=== PATIENT | male | born 2000 | race Hispanic/Latino ===

== ENCOUNTER 2023-08-28 19:28 | Emergency (ER) | payer BC ==
[2023-08-28] MEDS ORDERED: Lidocaine 1% PF 5 ML VIAL ONE (20:41)
[2023-08-28] MEDS ORDERED: Boostrix 0.5 ML (Tdap) VIAL (>/=7 yrs of age) ONE (21:05)
[2023-08-28] MEDS ORDERED: Bacitracin 1 PK ONE (21:05)
== END 2023-08-28 21:20 | disposition home or self-care (01) ==
LOC: ERS 19:28
DX: S61.213A Laceration without foreign body of left middle finger without damage to nail, initial encounter (principal); W26.8XXA Contact with other sharp object(s), not elsewhere classified, initial encounter; Z23 Encounter for immunization
CPT/HCPCS: 12001; 90471; 90715

== ENCOUNTER 2023-09-09 18:59 | Emergency (ER) | payer BC | END 2023-09-09 19:15 | disposition home or self-care (01) | LOC: ERS 18:59 | DX: S61.223D Laceration with foreign body of left middle finger without damage to nail, subsequent encounter (principal); W26.9XXD Contact with unspecified sharp object(s), subsequent encounter ==

== ENCOUNTER 2023-12-11 14:23 | Emergency (ER) | payer BC ==
[2023-12-11] MEDS ORDERED: Ibuprofen 200 MG TAB ONE (16:52)
== END 2023-12-11 18:25 | disposition home or self-care (01) ==
LOC: ERS 14:23
DX: S62.301A Unspecified fracture of second metacarpal bone, left hand, initial encounter for closed fracture (principal); Y04.2XXA Assault by strike against or bumped into by another person, initial encounter
CPT/HCPCS: 29125; 99283